=== PATIENT | female | born 1985 | race Caucasian/White ===

== ENCOUNTER → 2016-12-16 | Outpatient (REF) | LOC: WSOH 12:30 | DX: Z02.89 Encounter for other administrative examinations (principal) ==

== ENCOUNTER → 2017-06-29 | Outpatient (REF) | LOC: WSOH 13:04 | DX: Z02.89 Encounter for other administrative examinations (principal) ==

== ENCOUNTER → 2017-07-24 | Outpatient (REF) | LOC: WSOH 16:15 | DX: Z02.89 Encounter for other administrative examinations (principal) ==